=== PATIENT | male | born 1975 | race Caucasian/White ===

== ENCOUNTER 2019-09-01 18:51 | Emergency (ER) | payer OTHER ==
[~2019-09-01] VITALS: Ht 170.2 cm; Wt 90.7 kg
== END 2019-09-01 20:51 | disposition home or self-care (01) ==
LOC: ED 18:51
DX: T83.490A Other mechanical complication of implanted penile prosthesis, initial encounter (principal); Z87.891 Personal history of nicotine dependence
CPT/HCPCS: 76870; 99283-25